=== PATIENT | male | born 1955 | race Caucasian/White ===

== ENCOUNTER → 2017-06-12 | Day surgery (SDC) | payer BC ==
[~2017-06-12] MED LIST: ACTOPLUS MET PO; AMARYL PO; ASPIRIN81 MG PO; BACLOFEN10 MG PO; FLECAINIDE ACE100 MG PO; GLUCOPHAGE850 MG PO; GLYBURIDE PO; K-DUR20 ME1 PO; LASIX PO; LISINOPRIL20 MG PO; METOPROLOL PO; METOPROLOL SUCC50 MG PO; NEURONTIN300 MG PO; PERCOCET5/325 PO; PRAVACHOL PO; PRAVACHOL20 MG PO; PRILOSEC PO; SOTALOL AF80 MG PO; VICTOZA0.6 MG/0.1 SUBQ; XARELTO10 MG PO; XARELTO20 MG PO; ZOLPIDEM TARTRA10 MG PO
--- NOTE | ~2017-06-12 | OR ---
Unit #: [id number] #: [id number] Patient: DIMPLE JARQUIN [id number] [address] [place], [place] [address] [id number] MR#: [id number] NAME: DIMPLE JARQUIN ROOM: Date of Procedure: 06/12/2017 Admission Date: 06/12/2017 Surgeon: Shivam Lau M.D. : 1955 Attending Physician: Shivam Lau M.D. Referring Physician: Shivam Lau M.D. Primary Care Physician: Dimple Gaspar M.D. OPERATIVE REPORT ADDITIONAL ATTENDING PHYSICIAN Dimple Gaspar M.D. PREOPERATIVE DIAGNOSIS Colorectal cancer screening. The patient has previously noted outlet type of hematochezia. PROCEDURE PERFORMED Colonoscopy up to cecum and terminal ileum with excellent preparation and good visualization. POSTOPERATIVE DIAGNOSES 1. Small internal hemorrhoids. 2. Scant sigmoid and descending colon diverticulosis. 3. Rest of the examination up to cecum and terminal ileum was normal. The quality of the prep was excellent. RECOMMENDATIONS Surveillance colonoscopy in future. SEDATION USED MAC. DESCRIPTION OF PROCEDURE Following detailed explanation of the potential risks and complications of a colonoscopy, namely perforation, bleeding, and complications related to sedation, the patient was brought to GI lab and laid in the left lateral decubitus position. A digital rectal examination was performed, which was normal. Lubricated tip of the Olympus video colonoscope was inserted through the anus and advanced under direct vision. The scope was advanced and passed up to sigmoid into descending colon. Scant small diverticula were noticed in this area. The scope tip was then navigated all the way up to cecum with visualization of the ileocecal wall and the appendiceal orifice. Preparation was excellent with good visualization and photodocumentation was obtained. Last several inches of terminal ileum also visualized after intubation of the ileocecal valve and appeared normal. Successive segments of the colonic mucosa were examined upon withdrawal and appeared unremarkable. There being no polyps, mass lesions, or AVMs. Other than the scant diverticula seen in the left side, the patient was lost noted to have small internal hemorrhoids at anal verge. The scope was then withdrawn. The patient returned to recovery area. He tolerated the procedure without any postprocedure complications. Unit #: [id number] #: [id number] Patient: DIMPLE JARQUIN Dictated by... Marie Walsh/joe TD: 06/13/2017 06:37 JOB #: [id number] OPERATIVE REPORT Page 1 of 1 X Shivam Lau MD PROCEDURE OPERATIVE NOTE
== END | disposition home or self-care (01) ==
LOC: COPS 12:47
DX: Z12.11 Encounter for screening for malignant neoplasm of colon (principal); K64.8 Other hemorrhoids; K57.30 Diverticulosis of large intestine without perforation or abscess without bleeding; E11.9 Type 2 diabetes mellitus without complications; F17.210 Nicotine dependence, cigarettes, uncomplicated; I10 Essential (primary) hypertension; Z96.651 Presence of right artificial knee joint; Z98.890 Other specified postprocedural states; Z79.84 Long term (current) use of oral hypoglycemic drugs
CPT/HCPCS: 82947